=== PATIENT | male | born 1990 | race Caucasian/White ===

== ENCOUNTER → 2025-04-01 08:57 | Outpatient (REF) | payer BC, SELFPAY ==
[2025-04-01 10:18] LABS: Glycohemoglobin (HgbA1c) 5.5 % (4.0-5.6)
[2025-04-01 10:26] LABS: HDL Cholesterol 35 mg/dl; LDL Cholesterol, Calculated 98 mg/dl; Very Low Density Lipoprotein 25 mg/dl (0-30)
[2025-04-01 11:04] LABS: TSH 2.33 uIU/ml (0.47-4.68)
== END ==
LOC: REG 08:57
PROVIDERS: ATTENDING PHYSICIAN Student in an Organized Health Care Education/Training Program
DX: Z00.00 Encounter for general adult medical examination without abnormal findings (principal); E66.813 Obesity, class 3; G47.33 Obstructive sleep apnea (adult) (pediatric); F90.9 Attention-deficit hyperactivity disorder, unspecified type; F41.9 Anxiety disorder, unspecified
CPT/HCPCS: 36415; 80061; 83036; 84443